=== PATIENT | male | born 1980 | race Caucasian/White ===

== ENCOUNTER 2019-05-01 16:46 | Outpatient (CLI) | payer MEDICARE ==
--- NOTE | 2019-05-01 17:05 | RAD ---
XR Lumbar Spine 2 Or 3 View HISTORY: Low back pain COMPARISON: None. FINDINGS: The vertebral bodies are normal in height there is lucency involving the anterior aspect of the superior endplate of L5, this is not well characterized on these plain film. There is minimal disc narrowing at L3-4 and L4-5. The pedicles appear intact. IMPRESSION: Somewhat unusual lucent bony process involving the anterior aspect of the superior endpla te of L5. This does not have the typical appearance of a Schmorl's node or a limbus type vertebrae although these would be possibilities. The sequelae of an injury would also be a consideration but al so not typical. Other types of lytic bony process would be a consideration. I would suggest further characterization with CT or MRI for further assessment.
== END 2019-05-01 16:47 | disposition home or self-care (01) ==
LOC: RAD-FRANK 16:46
PROVIDERS: ATTEND Nurse Practitioner Family
DX: M54.5 Low back pain (principal)
CPT/HCPCS: 72100

== ENCOUNTER 2019-07-20 13:40 | Outpatient (CLI) | payer MEDICARE ==
--- NOTE | 2019-07-20 14:34 | CT ---
EXAM: CT of the lumbar spine without contrast HISTORY: Lytic bone lesion seen on x-ray. Back surgery 5-6 months ago COMPARISON: Lumbar radiographs 05/01/2019 TECHNIQUE: Multiple contiguous axial images were obtained in a CT of the lumbar spine without contras t. Sagittal and coronal reformats were performed. FINDINGS: There is a fracture of the anterior aspect of the superior endplate of the L5 vertebral bod y. Surrounding sclerosis is seen suggesting healing. There is approximately 10% loss of vertebral body height. The other vertebral bodies and intervertebral discs demonstrate normal height and alignm ent without fracture or subluxation. . No degenerative changes are present. . The prevertebral and paraspinal soft tissues are unremarkable. IMPRESSION: Healing compression fracture of the superior endplate of L5.
== END 2019-07-20 13:41 | disposition home or self-care (01) ==
LOC: BICCT 13:40
PROVIDERS: ATTEND Nurse Practitioner Family
DX: M89.9 Disorder of bone, unspecified (principal); M48.56XD Collapsed vertebra, not elsewhere classified, lumbar region, subsequent encounter for fracture with routine healing
CPT/HCPCS: 72131

== ENCOUNTER 2019-09-01 13:56 | Outpatient (CLI) | payer MEDICARE ==
--- NOTE | 2019-09-01 15:05 | RAD ---
4 views of the cervical spine: 09/01/2019 COMPARISON: None HISTORY: Upper extremity radiculopathy FINDINGS: The neutral lateral examination demonstrates normal cervical vertebral body height and alig nment. There is mild C5-6 disc space narrowing. No significant anterolisthesis or retrolisthesis is appreciated on the flexion or extension views. Frontal imaging demonstrates mild uncovertebral and fa cet hypertrophy at C5-6. IMPRESSION: Mild degenerative change. No acute osseous abnormality.
--- NOTE | 2019-09-01 15:10 | RAD ---
RADIOGRAPH LUMBAR SPINE 4 VIEWS: DATE: 09/01/2019 HISTORY: 38-year-old male with wedge compression fracture, radiculopathy lumbar region. COMPARISON: 05/01/2019. TECHNIQUE: All weightbearing images. One AP view. 3 lateral views in flexion, extension, and neutral. FINDINGS: 5 lumbar-type vertebrae. Again noted is the anterior wedge compression fracture deformity of the ante rior superior endplate of L5. Interval healing changes with interval sclerosis of previously demonstrated lucent components. No further loss of height. No spondylolisthesis. No instability betwe en flexion and extension. No high-grade disc space narrowing. IMPRESSION: Now-old anterior wedge compression fracture deformity of L5 with no further change of height, and no instability.
--- NOTE | 2019-09-01 15:35 | MRI ---
MRI cervical spine without contrast: 09/01/2019 COMPARISON: None HISTORY: Numbness of bilateral hands with unsteadiness while walking TECHNIQUE: Multiplanar multisequence MR imaging of the cervical spine obtained without contrast FINDINGS: Sagittal STIR imaging demonstrates no focal area of osseous marrow edema. C2-3: No significant central canal or neural foraminal stenosis C3-4: No significant central canal or neural foraminal stenosis C4-5: There is disc desiccation and mild disc bulge with partial effacement of the ventral thecal sac and mild central canal stenosis. No significant neural foraminal stenosis. C5-6: There is disc space narrowing disc desiccation and disc bulge. There is a central/right paracen tral annular tear with an associated left paracentral disc protrusion. This exerts mass effect on the cervical cord with severe central canal stenosis. 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 Probable associated moderate bilateral neural foraminal stenosis , left greater than right. C6-7: No significant central canal or neural foraminal stenosis C7-T1: No significant central canal or neural foraminal stenosis. IMPRESSION: Degenerative change within the cervical spine as detailed above, most significant at C5-C 6 where there is disc bulge with superimposed left paracentral disc protrusion causing severe central canal stenosis and probable mild cervical cord edema. Bilateral significant neural foraminal stenosis noted as well. CODE T Transcribed Date/Time: 09/01/2019 3:43 PM
--- NOTE | 2019-09-01 16:01 | MRI ---
MRI LUMBAR SPINE WITHOUT CONTRAST: 09/01/19 INDICATIONS: Lumbar radiculopathy. COMPARISON: Comparison made to lumbar films of 09/01/19. FINDINGS: There is anterior wedge compression deformity involving the L5 vertebra which was present on the prio r plain films. There is mild edema within the L5 vertebral body which may indicate subacute compressi on. The other lumbar vertebrae maintain normal height. The disc spaces are preserved. At L1-2, minimal disc bulge. No central canal or foraminal stenosis. At L2-3, no significant disc bulge. Moderate facet and ligamentous hypertrophy. No significant centra l canal or foraminal stenosis. At L3-4, broad based bulge with central disc protrusion compresses the thecal sac. There is facet and ligamentous hypertrophy with posterior epidural fat. These changes combine to produce moderate to se hasmukh central canal stenosis. At L4-5, broad based disc bulge flattens the thecal sac. Facet and ligamentous hypertrophy is present . These changes produce mild central canal stenosis. At L5-S1, mild disc bulge abuts the thecal sac. No central canal or foraminal stenosis. Nerve root sleeve cysts are seen at S2 incidentally. IMPRESSION: 1. Anterior wedge compression at L5 with edema seen on STIR sequence. 2. Broad based bulge with disc protrusion at L3-4 produces moderate to severe central canal sten osis described above. 3. Disc bulge at L4-5 produces mild central canal stenosis as noted above. POS: [facility]
== END 2019-09-01 13:57 | disposition home or self-care (01) ==
LOC: BICMRI 13:56
PROVIDERS: ATTEND Neurological Surgery
DX: M54.16 Radiculopathy, lumbar region (principal); S32.050D Wedge compression fracture of fifth lumbar vertebra, subsequent encounter for fracture with routine healing; R26.89 Other abnormalities of gait and mobility
CPT/HCPCS: 72050; 72110; 72141; 72148

== ENCOUNTER 2020-01-11 10:34 | Outpatient (CLI) | payer MEDICARE ==
--- NOTE | 2020-01-11 11:10 | RAD ---
CERVICAL SPINE SERIES: HISTORY: Followup of surgery. COMPARISON: A 09/01/2019 study. FINDINGS: The patient has undergone an anterior cervical fusion. Placement of plate and screws is noted at the C5-6 levels with markers of a disk implant within the confines of the disk level. The bones appear somewhat demineralized. No other interval change. IMPRESSION: Postoperative changes with anterior cervical fusion at C5-6. POS: OFF
== END 2020-01-11 10:35 | disposition home or self-care (01) ==
LOC: TBSIIMAG 10:34
PROVIDERS: ATTEND Neurological Surgery
DX: M47.12 Other spondylosis with myelopathy, cervical region (principal); Z98.1 Arthrodesis status
CPT/HCPCS: 72040